=== PATIENT | female | born 1940 | race Caucasian/White ===

== ENCOUNTER → 2017-11-10 | Outpatient (CLI) | payer OTHER ==
[~2017-11-10] MED LIST: ACET325 PO; ASPI325 PO; ASPI81EC PO; Aldactazide 251 EACH PO; Amoxicillin500 MG; BENZ100A PO; Bactrim Ds Tab1 EACH PO; CEFUROXIME PO; CLOP75 PO; Coumadin5 MG PO; DILT180 PO; DILT180ER PO; DIVA125 PO; DOCU100 PO; DONE10 PO; ELIQUIS5 MG PO; ESCI5 PO; HYDACE5 PO; HYDCHL25 PO; HYDR1TAB94 PO; Hydrocodone-Ap1 EA23; LANS30EC PO; LOPE2C PO; LOVA20 PO; MULVITMINF PO; NAPR500 PO; POTA10T PO; POTCHL10ER PO; PRAV20 PO; QUET25 PO; RANI150 PO; SPIR25 PO; UBID100 PO
[2017-11-10 08:47] LABS: Source, Urine Clean Catch
[2017-11-10 08:52] LABS: Bilirubin, Urine Neg (Neg); Blood, Urine Neg (Neg); Glucose Qualitative, Urine Neg (Neg); Ketones, Urine Neg (Neg); Leukocyte Esterase, Urine 2+ (Neg); Nitrite, Urine Neg (Neg); Protein, Urine Neg (Neg); Urobilinogen, Urine NORM (Normal)
[2017-11-10 09:05] LABS: Appearance, Urine Clear (Clear); Color, Urine Yellow (P-Yellow)
[2017-11-10 09:07] LABS: Bacteria Mod /hpf; Red Blood Cells, Urine Not Seen /hpf (0-2); Squamous Epithelial Cells Few /hpf (Few)
== END ==
LOC: LAB SHORT 08:44
PROVIDERS: Student in an Organized Health Care Education/Training Program
DX: N39.0 Urinary tract infection, site not specified (principal)
CPT/HCPCS: 81001; 87077; 87086; 87186

== ENCOUNTER → 2017-11-22 | Outpatient (CLI) | payer OTHER ==
[2017-11-22 18:50] LABS: Source, Urine Clean Catch
[2017-11-22 18:55] LABS: Appearance, Urine Cloudy (Clear); Bilirubin, Urine Neg (Neg); Blood, Urine 2+ (Neg); Color, Urine Yellow (P-Yellow); Glucose Qualitative, Urine Neg (Neg); Ketones, Urine Neg (Neg); Leukocyte Esterase, Urine 3+ (Neg); Nitrite, Urine Neg (Neg); Protein, Urine 2+ (Neg); Specific Gravity, Urine 1.015 (1.003-1.022); Urobilinogen, Urine NORM (Normal)
[2017-11-22 19:03] LABS: White Blood Cells, Urine TNTC /hpf (0-5)
[2017-11-22 19:05] LABS: Bacteria Few /hpf; Squamous Epithelial Cells Few /hpf (Few)
== END ==
LOC: LAB 17:10
PROVIDERS: Student in an Organized Health Care Education/Training Program
DX: N39.0 Urinary tract infection, site not specified (principal)
CPT/HCPCS: 81001; 87077; 87086; 87186

== ENCOUNTER 2018-04-16 09:27 | Emergency (ER) | payer OTHER ==
[~2018-04-16] VITALS: Ht 157.5 cm; Wt 63.5 kg
== END 2018-04-16 11:42 | disposition home or self-care (01) ==
LOC: ER 09:27
DX: S01.01XA Laceration without foreign body of scalp, initial encounter (principal); Z23 Encounter for immunization; I10 Essential (primary) hypertension; I48.91 Unspecified atrial fibrillation; Z86.73 Personal history of transient ischemic attack (TIA), and cerebral infarction without residual deficits; Z88.5 Allergy status to narcotic agent; Z88.8 Allergy status to other drugs, medicaments and biological substances; Z79.899 Other long term (current) drug therapy; W22.8XXA Striking against or struck by other objects, initial encounter
CPT/HCPCS: 12002; 70450; 72125; 90714; 96372; 99284-25